=== PATIENT | female | born 1995 | race Caucasian/White ===

== ENCOUNTER 2019-01-16 07:03 | Day surgery (SDC) | payer OTHER ==
[2019-01-13 09:40] LABS: BASOPHILS # (AUTO) 0.03 x10^3/uL (0-0.1); BASOPHILS % (AUTO) 1 % (0-1); EOSINOPHILS # (AUTO) 0.07 x10^3/uL (0-0.4); EOSINOPHILS % (AUTO) 1 % (1-7); LYMPHOCYTES # (AUTO) 1.49 x10^3/uL (1-3.4); LYMPHOCYTES % (AUTO) 29 % (22-44); MD NO; MEAN CORPUSCULAR HEMOGLOBIN 32.2 pg (27.0-34.8); MEAN CORPUSCULAR HGB CONC 33.2 g/dL (32.4-35.8); MEAN CORPUSCULAR VOLUME 96.8 fL (80-100); MONOCYTES # (AUTO) 0.46 x10^3/uL (0.2-0.8); MONOCYTES % (AUTO) 9 % (2-9); NEUTROPHILS # (AUTO) 3.11 x10^3/uL (1.8-6.8); NEUTROPHILS % (AUTO) 60 % (42-75); PLATELET COUNT 276 x10^3/uL (130-400); RED BLOOD COUNT 4.47 x10^6/uL (3.82-5.3); RED CELL DISTRIBUTION WIDTH 13.4 % (9.6-15.2)
[2019-01-13 09:55] LABS: MICROSCOPIC AUTO
[2019-01-13 10:02] LABS: CULTURE INDICATED? NO
[~2019-01-16] VITALS: Ht 152.4 cm; Wt 59.0 kg
[~2019-01-16 07:03] MED LIST: ASCO1TAB15 PO; LEVO25TA2 PO; MULT-658 PO; NORE5TAB PO; VITA1CAP PO
[2019-01-16] MEDS ORDERED: BUPIVACAINE/PF 0.25% ONE (07:05)
[2019-01-16] MEDS ORDERED: LACTATED RINGERS 1,000 ML IV SCH (07:27)
[2019-01-16] MEDS ORDERED: ACETAMINOPHEN 500 MG TABLET PO ONE (07:30)
[2019-01-16] MEDS ORDERED: GABAPENTIN 300 MG CAPSULE PO ONE (07:30)
[2019-01-16 07:44] VITALS: BP 102/68
[2019-01-16] MEDS ORDERED: MIDAZOLAM 1 MG/ML, 2ML ONE (07:55)
[2019-01-16] MEDS ORDERED: FENTANYL PF 250 MCG/5ML ONE (07:55)
[2019-01-16] MEDS ORDERED: PROMETHAZINE 25 MG/ML, 1ML IV PRN (08:30)
[2019-01-16] MEDS ORDERED: MEPERIDINE/PF 25MG/ML,1ML IVPush PRN (08:30)
[2019-01-16] MEDS ORDERED: LABETALOL 5MG/ML, 20ML IV PRN (08:30)
[2019-01-16] MEDS ORDERED: OXYcodone 5 MG/5 ML ORAL.SOL UDC PO PRN (08:30)
[2019-01-16] MEDS ORDERED: hydrALAzine 20 MG/ML, 1ML IV PRN (08:30)
[2019-01-16] MEDS ORDERED: HYDROmorphone 2 MG/ML, 1ML IVPush PRN (08:30)
[2019-01-16] MEDS ORDERED: HALOPERIDOL 5 MG/ML IV PRN (08:30)
[2019-01-16] MEDS ORDERED: FENTANYL PF 100 MCG/2ML IV PRN (08:30)
[2019-01-16 08:39] LABS: HCG UR SG 1.021 (1.003-1.030)
[2019-01-16] MEDS ORDERED: BUPIVACAINE/PF-EPI 0.25% 1:200K INFIL ONE (09:16)
[2019-01-16] MEDS ORDERED: ONDANSETRON 2MG/ML, 2ML ONE (09:20)
[2019-01-16] MEDS ORDERED: SUCCINYLCHOLINE 20 MG/ML, 10ML ONE (09:20)
[2019-01-16] MEDS ORDERED: CEFAZOLIN 1,000 MG ONE (09:20)
[2019-01-16] MEDS ORDERED: NEOSTIGMINE 1 MG/ML, 10ML ONE (09:20)
[2019-01-16] MEDS ORDERED: GLYCOPYRROLATE 0.2MG/1ML, 5ML ONE (09:20)
[2019-01-16] MEDS ORDERED: PROPOFOL 10 MG/ML, 20ML ONE (09:20)
[2019-01-16] MEDS ORDERED: ROCURONIUM 10MG/ML,5ML ONE (09:20)
[2019-01-16] MEDS ORDERED: DEXAMETHASONE 4 MG/ML, 1ML ONE (09:20)
[2019-01-16] MEDS ORDERED: PROMETHAZINE 25 MG/ML, 1ML ONE (09:55)
== END 2019-01-16 12:00 | disposition home or self-care (01) ==
LOC: OUT 07:03
PROVIDERS: ATTEND Obstetrics & Gynecology
DX: N94.4 Primary dysmenorrhea (principal); G89.29 Other chronic pain; R10.2 Pelvic and perineal pain; E03.9 Hypothyroidism, unspecified; Z79.890 Hormone replacement therapy; Z79.899 Other long term (current) drug therapy
CPT/HCPCS: 36415; 49320; 81001; 81025; 84702; 85025; J0330; J0690; J1100; J2250; J2405; J2550; J2704; J2710; J3010; J3490; J7120